=== PATIENT | female | born 1995 | race Caucasian/White ===

== ENCOUNTER 2017-06-24 15:15 | Emergency (ER) | END 2017-06-24 18:48 | disposition home or self-care (01) ==

== ENCOUNTER 2018-06-28 09:31 | Inpatient (IN) | payer OTHER ==
[~2018-06-28] VITALS: Ht 160 cm; Wt 65.0 kg
[~2018-06-28 09:31] MED LIST: ACET500C5 PO; CEPH-443 PO; IBUP-1542 PO; PREN-39 PO
[2018-06-28 09:51] VITALS: BP 118/73; PULSE 101; RESP 18; Ht 160 cm; Wt 65.0 kg
[2018-06-28] MEDS ORDERED: LACTATED RINGER'S 1,000 ML IV PRN (09:53)
[2018-06-28] MEDS ORDERED: CARBOPROST 250 MCG INJ IM PRN ×2 (10:00→18:00)
[2018-06-28] MEDS ORDERED: MISOPROSTOL 200 MCG TAB PR PRN ×2 (10:00→18:00)
[2018-06-28] MEDS ORDERED: OXYTOCIN 30 UNITS/LR 500 ML IV SCH ×4 (10:00→13:00)
[2018-06-28] MEDS ORDERED: IBUPROFEN 600 MG TAB PO PRN (10:00)
[2018-06-28] MEDS ORDERED: METHYLERGONOVINE 0.2 MG INJ IM PRN ×2 (10:00→18:00)
[2018-06-28] MEDS ORDERED: BUTORPHANOL 2 MG INJ IV PRN (10:00)
[2018-06-28] MEDS ORDERED: OXYTOCIN 30 UNITS/LR 500 ML IV PRN ×2 (10:00→18:00)
[2018-06-28] MEDS ORDERED: LIDOCAINE 1% (MPF) 30 ML INJ INJ PRN (10:00)
[2018-06-28] MEDS ORDERED: MINERAL OIL LIGHT 10 ML VIAL TOP PRN ×2 (10:00→13:00)
[2018-06-28] MEDS: LACTATED RINGER'S 1,000 ML IV SCH ×2 (10:09→12:18)
--- NOTE | 2018-06-28 10:18 | TRIAGE ---
OB Triage Datetime Report Generated by CPN: 06/28/2018 10:17 Datetime: 06/28/2018 09:42 Vaginal Exam Dilatation (cms): 4.5 Effacement (%): 80 Station: -2 Exam By: AAMIR Vaginal Bleeding: None Cervix, Consistency: Soft Cervix, Position: Midposition Datetime: 06/28/2018 09:41 Assessment Type: Triage Maternal Assessment Level of Consciousness: Fully Conscious DTR's/Clonus: DTRs 2+; No Clonus Headache: Denies Blurred Vision: No Respiratory Effort: Unlabored; Regular Rhythm; Equal Expansion Breath Sounds, Left: Clear and Equal Breath Sounds, Right: Clear and Equal Nausea/Vomiting: Denies RUQ Epigastric Pain: Denies Lower Extremities Edema: None Degree: None Upper Extremities Edema: None Degree: None Facial Edema: None Fall Risk Assessment History of Falling: (0) No Secondary Diagnosis: (0) No Ambulatory Aid: (0) Bedrest/Nurse Assist IV Therapy: (0) No Gait: (0) Normal/Bedrest/Immobile Mental Status: (0) Oriented to Own Ability Fall Score: 0 Fall Risk Score Definition: No Risk: No action required Datetime: 06/28/2018 09:40 Time of Arrival: 06/28/2018 09:18 EGA: 39.5 Arrived By: Ambulatory Arrived From: Home Chief Complaint: PT. HERE C/O UC'S SINCE 0500 Movement: Present Contractions: Irregular Rupture of Membranes: Denies Vaginal Bleeding: None Vaginal Discharge: Denies Recent Sexual Intercouse: Denies Abdominal Trauma: Not Applicable Patient Complaints: Contractions; Cramping; Back Pain Time Provider Notified: 06/28/2018 09:48 Provider Notified: SHARON Initial Plan: EFM/SVE Datetime: 06/28/2018 09:35 Labor Evaluation Monitor Mode: External Heart Rate Monitor Mode: External US
[2018-06-28] MEDS ORDERED: AMPICILLIN 2 GM/NS (PMX) 100 ML IV ONE (10:30)
[2018-06-28] MEDS ORDERED: FENTAnyl 2MCG/ML-ROPIV 0.2% 100 ML ONE (10:46)
--- NOTE | 2018-06-28 11:16 | PAC ---
Date/Time of Note Date/Time of Note DATE: 06/29/18 TIME: 07:00 Post-Anesthesia Notes Post-Anesthesia Note Last documented vital signs Vital Signs Date Temp Pulse Resp B/P (MAP) Pulse Ox O2 O2 Flow FiO2 Time Delivery Rate 06/28/18 97.5 101 18 118/73 Room Air 09:51 (88) Activity: WNL Respiratory function: WNL Cardiovascular function: WNL Mental status: Baseline Pain reasonably controlled: Yes Hydration appropriate: Yes Nausea/Vomiting absent: Yes LANI SULLIVAN MD Jun 28, 2018 11:16
--- NOTE | 2018-06-28 11:16 | PREAC ---
Date/Time of Note Date/Time of Note DATE: 06/28/18 TIME: 11:14 Anesthesia Eval and Record Evaluation Time Pre-Procedure Interview DATE: 06/28/18 TIME: 10:25 Age 22 Sex female NPO: 8 hrs Preoperative diagnosis iup @ 39 wks, , labor Planned procedure soila Past Medical History Past Medical History: Includes : : (2), Para: (1), Gestational age: (39 wks.) Surgery & Anesthesia Issues No known issue Meds Anticoagulation: No Beta Radha within 24 hr: No Reason Beta Radha not given: Pt. not on B-Radha Reported Medications Vits W-Ca,Fe,Fa(<1MG) ( Vitamins) 1 Tab Tablet, 1 TAB PO DAILY 03/05/15 Discontinued Scripts Acetaminophen* (Tylophen*) 500 Mg Capsule, 1 CAP PO Q6H PRN for PAIN AND OR ELEVATED TEMP, #30 CAP Prov:MALU BASS PA-C 06/24/17 Cephalexin* (Keflex*) 500 Mg Capsule, 500 MG PO QID for 7 Days, CAP Prov:MALU BASSC 06/24/17 Ibuprofen* (Ibuprofen*) 600 Mg Tab, 600 MG PO Q6, #20 0 Refills Prov:RADHA FOOTE MD 03/06/15 Current Medications Lactated Ringer's 1,000 ml @ 125 mls/hr Q8H IV Last administered on 06/28/18at 10:09; Admin Dose 125 MLS/HR; Start 06/28/18 at 09:53 Butorphanol Tartrate (Stadol) 2 mg Q2H PRN IV .PAIN; Start 06/28/18 at 10:00 Lidocaine (Xylocaine 1% (Mpf)) 30 ml ONCE PRN INJ .EPISIOTOMY; Start 06/28/18 at 10:00 Oxytocin/Lactated Ringer's 500 ml @ 500 mls/hr ONCE POST IV ; Start 06/28/18 at 10:00 Oxytocin/Lactated Ringer's 500 ml @ 125 mls/hr POST IV ; Start 06/28/18 at 10:00 Ibuprofen (Motrin) 600 mg ONCE PRN PO .PAIN 1-5; Start 06/28/18 at 10:00 Lactated Ringer's 1,000 ml @ 2,000 mls/hr Q30M PRN IV .ANESTHESIA; Start 06/28/18 at 09:53 Oxytocin/Lactated Ringer's 500 ml @ 0 mls/hr ONCE PRN IV .VAGINAL BLEEDING; Start 06/28/18 at 10:00 Methylergonovine Maleate (Methergine) 0.2 mg ONCE PRN IM .VAGINAL BLEEDING; Start 06/28/18 at 10:00 Carboprost Tromethamine (Hemabate) 250 mcg ONCE PRN IM .VAGINAL BLEEDING; Start 06/28/18 at 10:00 Misoprostol (Cytotec) 1,000 mcg ONCE PRN CA .VAGINAL BLEEDING; Start 06/28/18 at 10:00 Mineral Oil (Muri-Lube) 10 ml PRN PRN TOP NOTE; Start 06/28/18 at 10:00 Ampicillin 100 ml @ 100 mls/hr ONCE ONCE IV Last administered on 06/28/18at 10:30; Admin Dose 100 MLS/HR; Start 06/28/18 at 10:30; Stop 06/28/18 at 11:29 Ampicillin 50 ml @ 100 mls/hr Q4H IV ; Start 06/28/18 at 14:30 Meds reviewed: Yes Allergies Coded Allergies: No Known Allergies (Unverified Allergy, Unknown, 06/24/17) Allergies Reviewed: Yes Labs/Studies Labs Reviewed: Reviewed by anesthesiologist Result Diagram: 06/28/18 1005 Laboratory Tests 06/28/18 10:05 Blood Bank Test 06/28/18 10:05 Blood Type A POSITIVE Rh Immune Globulin Candidate NO test: Positive Studies: ECG (n/a), CXR (n/a) Pre-procedure Exam Last vitals Vital Signs Date Temp Pulse Resp B/P (MAP) Pulse Ox O2 O2 Flow FiO2 Time Delivery Rate 06/28/18 97.5 101 18 118/73 Room Air 09:51 (88) Airway: Adequate mouth opening, Adequate thyromental dist Mallampati: Mallampati II Teeth: Normal Lung: Normal Heart: Normal ASA Physical Status ASA physical status: 2 Emergency: E Planned Anesthetic Neuraxial: Epidural Planned Pain Management Epidural, Local by surgeon Pre-operative Attestations Prior to commencing anesthesia and surgery, the patient was re-evaluated, there was verification of: *The patient's identity *The results of appropriate recent lab work and preoperative vital signs *The above evaluation not changing prior to induction *Anesthetic plan, risk benefits, alternative and complications discussed with patient/family; questions answered; patient/family understands, accepts and wishes to proceed. Processing [employer] Supervisor used LANI SULLIVAN MD Jun 28, 2018 11:16
[2018-06-28] MEDS ORDERED: NALOXONE (0.4 MG/ML) INJ IV PRN (11:30)
[2018-06-28] MEDS ORDERED: FENTAnyl 2MCG/ML-ROPIV 0.2% 100 ML BAG EPI SCH (11:30)
[2018-06-28] MEDS ORDERED: AMPICILLIN 1 GM/NS (PMX) 50 ML IV SCH (14:30)
[2018-06-28] MEDS ORDERED: SOD CHLORIDE 0.9% 1,000 ML IV PRN (14:30)
--- NOTE | 2018-06-28 15:20 | HP ---
Date/Time of Note Date/Time of Note DATE: 06/28/18 TIME: 15:17 OB - History Hx of Present Free Text/Dictation 22-year-old female 2 para 1 at 39+ weeks gestation admitted complaining of onset of labor contractions at 4 AM Denies rupture of membrane no vaginal bleeding Chief Complaint: Labor contractions Last Menstrual Period: Sep 23, 2017 Estimated Due Date: Jun 30, 2018 : 2 Para: 1 Care: Good Care Ultrasounds: Normal mid trimester US Obstetrical Complications: None Medical Complications: None Past Family/Social History * Past Medical, Surgical, Family and Obstetric Histories reviewed from chart. Blood Type: A+ Rubella: immune RPR/VDRL: Negative GBS Status: Positive HBsAG: Negative OB Admission Exam Vital Signs Vital Signs Vital Signs Date Temp Pulse Resp B/P (MAP) Pulse Ox O2 O2 Flow FiO2 Time Delivery Rate 06/28/18 97.5 101 18 118/73 Room Air 09:51 (88) Physical Exam HEENT: WNL Heart: Rhythm Normal Lungs: Clear, Equal Abdomen: WNL Extremities: Normal Reflexes: Normal Cervical Dilatation: 4cm Effacement: 75% Station: -3 Membranes: Intact Heart Rate: 140's Accelerations: Accelerations Present Decelerations: No Decelerations Varibility: Moderate Contractions on Admission: < 5 Minutes Apart Date/Time Contractions Began: 06/28/2018 for a Frequency of Contractions: 5 minutes Duration: Over 50 seconds Intensity: Moderate Last 72 hours Lab Results CBC & BMP 06/28/18 10:05 OB Assessment/Plan Other Assessment: Term gestation in labor pains Other plan: Proceed with spontaneous labor on vaginal delivery and RADHA FOOTE MD Jun 28, 2018 15:20
[2018-06-28] MEDS ORDERED: KETOROLAC 30 MG INJ IV STA (15:21)
--- NOTE | 2018-06-28 15:21 | LDN ---
Date/Time of Note Date/Time of Note DATE: 06/28/18 TIME: 15:20 Delivery Summary Normal spontaneous vaginal delivery of a viable over intact perineum Weeks of Gestation 39 weeks and 5-day Placenta Delivered: Spontaneously, Intact & Complete Meconium: none Episiotomy: No Perineal laceration: 0 Laceration repair: 3 times vestibular lacerations on inner side of labia minora on either sides were repaired using 4-0 chromic on a small half needle Anesthesia type: Epidural Estimated blood loss: 200 Sponge & Needle done & correct: Yes All needle counts correct: Yes Any foreign bodies felt in the: No Delivery Information Sex Sex: female Apgars 1 Minute: 9 5 Minute: 9 Suctioning Nose & mouth suctioned at micha: Yes Delee suction performed: No Umbilical Cord Umbilical cord with: 3 Vessels Cord presentations: nuchal cord Nuchal cord present X: 1 Cord Blood was obtained: Yes Mother & Baby Disposition Disposition Mom & Baby to Maternity; Good: Yes (Mother and baby were recovered in good) Mom transferred to: Other (Paternity) Baby to NICU: No RADHA FOOTE MD Jun 28, 2018 15:21
[2018-06-28 17:50] VITALS: BP 114/65; PULSE 94; RESP 18
[2018-06-28] MEDS ORDERED: HYDROCODONE/APAP (5/325) TAB PO PRN ×2 (18:00)
[2018-06-28] MEDS ORDERED: DIBUCAINE 1% 30 GM OINT TOP PRN (18:00)
[2018-06-28] MEDS ORDERED: LANOLIN HPA 1 PKT TOP PRN (18:00)
[2018-06-28] MEDS ORDERED: BENZOCAINE 20% 56 ML SPRAY TOP PRN (18:00)
[2018-06-28] MEDS ORDERED: WITCH HAZEL/GLYCERIN PAD PR PRN (18:00)
[2018-06-28] MEDS ORDERED: ZOLPIDEM 5 MG TAB PO PRN (18:00)
[2018-06-28] MEDS: CEPHALEXIN 500 MG CAP PO SCH ×2 (18:31→23:43)
[2018-06-28] MEDS: LACTATED RINGER'S 1,000 ML IV* SCH (18:31)
[2018-06-28] MEDS: IBUPROFEN 600 MG TAB PO SCH ×2 (18:31→23:43)
[2018-06-28 20:00] VITALS: BP 119/58; PULSE 95; RESP 18
[2018-06-28] MEDS: SENNA/DOCUSATE NA (8.6MG/50MG) TAB PO SCH (21:46)
[2018-06-28] MEDS: MAGNESIUM HYDROXIDE 30ML CUP PO SCH (21:49)
[2018-06-29] MEDS: LACTATED RINGER'S 1,000 ML IV* SCH (01:35)
[2018-06-29 04:00] VITALS: BP 115/59; PULSE 71; RESP 18
[2018-06-29] MEDS: CEPHALEXIN 500 MG CAP PO SCH ×3 (05:43→17:24)
[2018-06-29] MEDS: IBUPROFEN 600 MG TAB PO SCH ×3 (05:43→17:24)
[2018-06-29 08:30] VITALS: BP 107/68; PULSE 76; RESP 18
[2018-06-29] MEDS: SENNA/DOCUSATE NA (8.6MG/50MG) TAB PO SCH ×2 (08:33→21:58)
[2018-06-29] MEDS: MAGNESIUM HYDROXIDE 30ML CUP PO SCH ×2 (08:35→21:58)
--- NOTE | 2018-06-29 15:37 | DS ---
Date/Time of Note Date/Time of Note Home today or next day DATE: 06/29/18 TIME: 15:36 Obstetrical Discharge Record Final Diagnosis Final Diagnosis: Term delivered Other Final Diagnosis Status post vaginal delivery Vaginal Delivery Obstetrical Delivery: Spontaneous, Laceration, Repaired Complications Augmentation: Yes Condition on Discharge Physical Assessment Last Vitals: See nurse's notes Voiding: Yes Bowel Movement: Yes Breast: Soft, non-tender, Filling Fundus: Firm Abdomen and Incision: Abdomen is soft with present bowel sounds Episiotomy: Perineum is clean Calf Tenderness: No Patient Condition: Good RADHA FOOTE MD Jun 29, 2018 15:37
[2018-06-29] MEDS ORDERED: IBUP-1542 PO (15:39)
--- NOTE | 2018-06-29 15:39 | PD.PPDC ---
WRISTER Discharge Instruction Provider Information Physician Information 22-year-old female had vaginal delivery Diagnosis [id number] Final Diagnosis: [id number] Status post vaginal delivery Condition [id number] Patient Condition: Vqhge7z Good Diet Vuttd2Ou Diet: Wguvt7v Resume Regular Diet Activity/Restrictions [id number] Activity: Hwnqu5y Normal Activity May Shower [id number] Restrictions: Odccl4i Nothing in the Vagina [id number] Return to Work or School: Pmfma2q Aug 11, 2018 Follow-up Follow-up with Physician: 2, 4, Week/Weeks (In clinic) Return to clinic for [id number] OB Instructions: Qqbxi7g Breast Tenderness Depression Comment: Pelvic rest for 6 weeks RADHA FOOTE MD Jun 29, 2018 15:39
[2018-06-29 16:02] VITALS: BP 117/70; PULSE 87; RESP 18
[2018-06-29 19:35] VITALS: BP 105/67; PULSE 86; RESP 19
[2018-06-30] MEDS: CEPHALEXIN 500 MG CAP PO SCH ×3 (00:01→12:06)
[2018-06-30] MEDS: IBUPROFEN 600 MG TAB PO SCH ×3 (00:01→12:06)
[2018-06-30 03:35] VITALS: BP 110/64; PULSE 66; RESP 18
[2018-06-30 08:35] VITALS: BP 107/58; PULSE 61; RESP 16
[2018-06-30] MEDS ORDERED: DIPHTH/TET/ACEL PERTUSS (ADULT) 0.5 ML VIAL IM* ONE (09:00)
[2018-06-30] MEDS ORDERED: VARICELLA VACCINE LIVE/PF 1,350 UNIT/0.5 ML ML SC* ONE (09:00)
[2018-06-30] MEDS ORDERED: MEASLES,MUMPS,RUBELLA VACCINE INJ SC* ONE (09:00)
[2018-06-30] MEDS: SENNA/DOCUSATE NA (8.6MG/50MG) TAB PO SCH (09:57)
[2018-06-30] MEDS: MAGNESIUM HYDROXIDE 30ML CUP PO SCH (09:58)
--- NOTE | 2018-07-07 11:22 | DELSUM ---
Delivery Summary A-C Datetime Report Generated by CPN: 07/07/2018 11:20 DELIVERY PERSONNEL [employer] General Worker: Mao, Johanna MATERNAL INFORMATION Delivery Anesthesia: Epidural Medications in Delivery: pitocin 30 units lr 500ml Delivery QBL (ml): 214 Placenta Cultured: No Maternal Complications: None LABOR SUMMARY EDC: 06/30/2018 00:00 No. Babies in Womb: 1 Attempted: No Labor Anesthesia: Epidural LABOR INFORMATION Reason for Induction: Not Applicable Onset of Labor: 06/28/2018 05:00 Complete Dilatation: 06/28/2018 14:34 Oxytocin: N/A Group B Beta Strep: Positive Antibiotics # of Doses: 2 Antibiotics Time of Last Dose: 06/28/2018 10:30 Steroids Given: None Reason Steroids Not Administered: Not Applicable MEMBRANES Membranes Rupture Method: Artificial Rupture of Membranes: 06/28/2018 12:19 Length of Rupture (hr): 2.57 Amniotic Fluid Color: Clear Amniotic Fluid Amount: Large Amniotic Fluid Odor: Normal STAGES OF LABOR Stage 1 hr: 9 Stage 1 min: 34 Stage 2 hr: 0 Stage 2 min: 19 Stage 3 hr: 0 Stage 3 min: 2 Total Time in Labor hr: 9 Total Time in Labor min: 55 VAGINAL DELIVERY Episiotomy: None Other Laceration: vestibular laceration Laceration Repair: Yes Initial Vag Sponge Count: 10 Final Vag Sponge Count: 10 Initial Vag Sharps Count: 1 Final Vag Sharps Count: 3 Sponge Count Correct: Yes; Vaginal Sweep Performed Sharps Count Correct: Yes BABY A INFORMATION Delivery Date/Time: 06/28/2018 14:53 Method of Delivery: Vaginal Born in Route : No : N/A Forceps: N/A Vacuum Extraction: N/A Shoulder Dystocia : N/A SHOULDER DYSTOCIA BABY A Infant Delivery Date/Time: 06/28/2018 14:53 PRESENTATION/POSITION BABY A Presentation: Cephalic Cephalic Presentation: Vertex Vertex Position: Left Occipital Anterior Breech Presentation: N/A PLACENTA INFORMATION BABY A Placenta Delivery Time : 06/28/2018 14:55 Placenta Method of Delivery: Spontaneous Placenta Status: Delivered SCORES BABY A Heart Rate 1 min: >100 bpm Resp Effort 1 min: Good Cry Reflex Irritability 1 min: Cough/Sneeze/Pulls Away Muscle Tone 1 min: Active Motion Color 1 min: Body [place], Extremit Blue Resuscitation Effort 1 min: Tactile Stimulation SCORE 1 MIN: 9 Heart Rate 5 min: >100 bpm Resp Effort 5 min: Good Cry Reflex Irritability 5 min: Cough/Sneeze/Pulls Away Muscle Tone 5 min: Active Motion Color 5 min: Body [place], Extremit Blue Resuscitation Effort 5 min: Tactile Stimulation SCORE 5 MIN: 9 INFANT INFORMATION BABY A Gestational Age at Delivery: 39.5 Gestational Status: Full Term- 39- 40.6 Weeks Infant Outcome : Liveborn Condition : Stable Infant Sex: Female IDENTIFICATION/MEDS BABY A ID Band Number: [id number] ID Band Location: Right Leg; Left Arm Sensor Applied: Yes Sensor Number: [id number] Sensor Location : Cord Clamp Vitamin K Given : Not Given Erythromycin Given: Not Given WEIGHT/LENGTH BABY A Infant Birthweight (gm): 3225 Weight (lb): 7 Infant Weight (oz): 2 Infant Length (in): 21.00 Infant Length (cm): 53.34 CORD INFORMATION BABY A No. Cord Vessels: 3 Nuchal Cord : Around Neck x1, Tight Cord Blood Taken: Yes Infant Suction: Mouth; Nose ASSESSMENT BABY A Complications: Decreased Variability; Multiple Variable Decels Physical Findings at Delivery: Molding of the Head Respirations: Appears Normal [employer] Manager/ALS Called : No Care By: Gautam Miramontes RN Transferred To: Remains with Mother
== END 2018-06-30 13:50 | disposition home or self-care (01) | DRG 807 ==
LOC: OBT 09:31 → L-D 09:31 → OBT 09:48 → L-D 09:48 → PP1 17:30
PROVIDERS: ADMIT Obstetrics & Gynecology; ATTEND Obstetrics & Gynecology
PROC: 10E0XZZ Delivery of Products of Conception, External Approach (ICD-10-PCS; principal; 2018-06-28)
PROC: 0UQMXZZ Repair Vulva, External Approach (ICD-10-PCS; 2018-06-28)
DX: O69.81X0 Labor and delivery complicated by cord around neck, without compression, not applicable or unspecified (principal); Z37.0 Single live birth; O70.0 First degree perineal laceration during delivery; O99.824 Streptococcus B carrier state complicating childbirth; Z3A.39 39 weeks gestation of pregnancy
CPT/HCPCS: 62319; 85025; 85610; 85730; 86592; 86900; 86901; 87340; 90716; A4310; G0463; J0290; J1885; J2590; J3010; J7120